=== PATIENT | female | born 1940 | race Caucasian/White ===

== ENCOUNTER 2016-10-27 17:23 | Emergency (ER) | payer MEDICARE ==
[2016-10-27 17:52] VITALS: BP 126/75
[2016-10-27] MEDS ORDERED: Acetaminophen TAB* 325 MG PO ONE (18:10)
--- NOTE | 2016-10-27 18:49 | RAD ---
Indication: Head injury with fall and headaches. CT of the brain was performed without IV contrast. Ventricular structures are midline. No midline shift is noted. The extra-axial spaces are slightly prominent consistent with age-appropriate atrophy. Periventricular lucency is noted consistent with chronic ischemic White matter change. There is no evidence of intracranial mass or hemorrhage noted. Mastoid air cells are grossly unremarkable. Paranasal sinuses are grossly unremarkable. IMPRESSION: CHRONIC ISCHEMIC WHITE MATTER CHANGE HOWEVER NO INTRACRANIAL MASS OR HEMORRHAGE IS NOTED.
--- NOTE | 2016-10-27 19:13 | RAD ---
Indication: Left elbow injury. 5 views of left elbow demonstrates a fracture through the capitellum which appears to be impacted. There is a large joint effusion noted. IMPRESSION: Comminuted impacted fracture through the capitellum. Joint effusion is noted.
--- NOTE | 2016-10-27 19:14 | RAD ---
Indication: Left arm pain. 2 views of the left humerus demonstrates likely impacted fracture of the capitellum. Please refer to elbow report for further description. The shaft of the humerus is otherwise unremarkable. IMPRESSION: Likely impacted fracture of the capitellum. The remainder of the humerus is unremarkable.
--- NOTE | 2016-10-27 19:14 | RAD ---
Indication: Fall, left arm pain. 2 views of left forearm again identifies an impacted fracture of the capitellum of the humerus. The radius and ulna demonstrates no fracture. IMPRESSION: Impacted fracture capitellum. Radius and ulna are unremarkable.
--- NOTE | 2016-10-27 20:02 | ED ---
Upper Extremity Pain - HPI Summary HPI Summary: 76F presents with fall onto left elbow. She slipped on the sidewalk and fell backwards onto her left elbow and head. She eddie any LOC, nausea, or vomiting. She has pain in the back of her head. She is not on any blood thinners. She admits to swelling of her left elbow and loss of ROM due to pain. She states that she has regional pain syndrome of her right shoulder. She states due to this she is unable to use her right arm. She was right handed but now does everything with her left arm. She takes opana and fentayl for pain. - History of Current Complaint Chief Complaint: EDExtremityUpper Stated Complaint: FALL LEFT ARM PAIN Time Seen by Provider: 10/27/16 18:03 - Allergies/Home Medications Allergies/Adverse Reactions: Allergies Allergy/AdvReac Type Severity Reaction Status Date / Time Amitriptyline Allergy Altered Verified 10/14/15 10:10 Mental Status Levofloxacin [From Levaquin] Allergy See Comment Verified 10/14/15 10:10 Pneumococcal Vaccine Allergy REDNESS, Verified 10/14/15 10:10 SWELLING AND PAIN AT INJ SITE Naproxen AdvReac Mild Nausea And Verified 10/14/15 10:10 Vomiting HONEY BEES Allergy Unknown Uncoded 10/14/15 10:10 Reaction Details Pizcumo vac AdvReac Intermediate Swelling Uncoded 10/14/15 10:10 PMH/Surg Hx/FS Hx/Imm Hx Endocrine/Hematology History: Reports: Hx Thyroid Disease - HYPO- ON MEDICATION FOR Denies: Hx Diabetes, Hx Systemic Lupus Erythematosus Cardiovascular History: Reports: Hx Hypertension - on medication Denies: Hx Congestive Heart Failure Respiratory History: Reports: Hx Sleep Apnea GI History: Reports: Other GI Disorders - PROBLEMS WITH CONSTIPATION History: Denies: Hx Dialysis, Hx Renal Disease Musculoskeletal History: Reports: Hx Arthritis, Hx Back Problems, Hx Fibromyalgia, Other Musculoskeletal History - polymyalgia, CRPS of right arm Denies: Hx Rheumatoid Arthritis Sensory History: Reports: Hx Contacts or Glasses - GLASSES FOR DISTANCE Denies: Hx Hearing Aid Opthamlomology History: Reports: Hx Contacts or Glasses - GLASSES FOR DISTANCE Neurological History: Reports: Hx Migraine, Hx Nerve Disease - Reflex sympathetic Dystrophy right arm Psychiatric History: Reports: Hx Anxiety - AT TIMES, Hx Depression - ON MEDICATION FOR - Cancer History Hx Chemotherapy: No Hx Radiation Therapy: No - Surgical History Surgery Procedure, Year, and Place: 1977 tubal; 11/01 ck Calcium bld up in Lt Breast/benign; 07/13 Elbow (Tennis); 09/05 ElbowRt & pinched nerve in forearm; 05/14 Trial test for spinal cord stimulator; 06/21 Permanent spinal cord stimulator; 06/26 APPY; 01/[address] Rodriguez; 04/18/ Stimulator replaced by Dr Calvo; 05/[address] Calvo; 08/27 stimulator reimplanted Hx Anesthesia Reactions: Yes - BLOOD PRESSURE WENT UP AFTER HAVING DORSAL COLUMN STIMULATOR Infectious Disease History: No Infectious Disease History: Denies: Traveled Outside the [place] in Last 30 Days - Social History Alcohol Use: None Substance Use Type: Reports: None Substance Use Comment - Amount & Last Used: fentanyl patch, opana ER Smoking Status (MU): Never Smoked Tobacco Have You Smoked in the Last Year: No Review of Systems Negative: Fever Negative: Cough Positive: Edema - left elbow, Other - left elbow pain Positive: Headache All Other Systems Reviewed And Are Negative: Yes Physical Exam Triage Information Reviewed: Yes Vital Signs On Initial Exam: Initial Vitals Temp Pulse Resp BP Pulse Ox 98.8 F 96 18 126/75 96 10/27/16 17:51 10/27/16 17:51 10/27/16 17:51 10/27/16 17:51 10/27/16 17:51 Vital Signs Reviewed: Yes Appearance: Positive: Well-Appearing Skin: Positive: Warm, Dry Head/Face: Positive: Normal Head/Face Inspection Eyes: Positive: Normal, Conjunctiva Clear ENT: Positive: Normal ENT inspection, Pharynx normal, TMs normal Respiratory/Lung Sounds: Positive: Clear to Auscultation, Breath Sounds Present Cardiovascular: Positive: Normal, RRR Musculoskeletal: Positive: Strength/ROM Intact - wrist and fingers lef, Limited @ - left elbow due to pain, Edema Left - mild edema left elbow, Other - good pulses, capillary refill <2 secs, Neurological: Positive: Sensory/Motor Intact, Alert, Oriented to Person Place, Time, CN Intact II-III - Pearce Coma Scale Best Eye Response: 4 - Spontaneous Best Motor Response: 6 - Obeys Commands Best Verbal Response: 5 - Oriented Procedures - Splinting Location: left arm Hand-Made Type: fiberglass Splint: posterior long arm Pre-Proc Neuro Vasc Exam: normal Post-Proc Neuro Vasc Exam: normal Diagnostics - Vital Signs Vital Signs Temp Pulse Resp BP Pulse Ox 10/27/16 17:52 98.8 F 96 18 126/75 96 10/27/16 17:51 98.8 F 96 18 126/75 96 - Laboratory Lab Statement: Any lab studies that have been ordered have been reviewed, and results considered in the medical decision making process. - Radiology elbow, humerus, forearm Xray Interpretation: Positive (See Comments) Radiology Interpretation Completed By: Radiologist - CT head CT Interpretation: No Acute Changes - IMPRESSION: CHRONIC ISCHEMIC WHITE MATTER CHANGE HOWEVER NO INTRACRANIAL MASS OR HEMORRHAGE IS NOTED. CT Interpretation Completed By: Radiologist Course/Dx - Course Course Of Treatment: 76F presents with left elbow pain s/p falling backwards onto elbow. denies any numbness or tingling. limited ROM of elbow with mild edema. hit head denies any LOC or being on blood thinners. normal neuro exam. CT brain no acute changes. xray elbow shows comminuted impacted fracture through the capitellum. spoke with dr kline and said to place a lot of padding and place in long posterior arm splint with sling and follow up with ortho tomorrow. will take normal pain medication. patient understands and agrees with plan - Diagnoses Differential Diagnosis/HQI/PQRI: Positive: Fracture (Closed), Strain, Sprain Provider Diagnoses: Closed fracture of capitellum of left humerus - Physician Notifications Discussed Care Of Patient With: dr kline Time Discussed With Above Provider: 22:00 - place in posterior long arm splint with lots of padding, follow up with ortho tomorrow Discharge - Discharge Plan Condition: Good Disposition: HOME Patient Education Materials: Elbow Fracture (ED) Referrals: Lew Teresa MD [Primary Care Provider] - Rita Kline MD [Medical Doctor] - Additional Instructions: Call Dr Kline office tomorrow morning for appointment tomorrow Keep splint on area and keep dry Take Tylenol every 6 hours as needed for pain Apply ice Return to ED if develop any numbness, tingling, or any new or worsening symptoms
== END 2016-10-27 21:39 | disposition home or self-care (01) ==
LOC: ED 17:23
DX: S42.302A Unspecified fracture of shaft of humerus, left arm, initial encounter for closed fracture (principal); W01.0XXA Fall on same level from slipping, tripping and stumbling without subsequent striking against object, initial encounter; Y93.9 Activity, unspecified; Y92.9 Unspecified place or not applicable; Y99.9 Unspecified external cause status
CPT/HCPCS: 70450; 99283; A9270-GY

== ENCOUNTER 2019-08-22 11:35 | Inpatient (IN) | payer MEDICARE ==
--- NOTE | 2019-08-11 11:33 | HP ---
AMENDED REPORT NOW INCLUDES DESIGNATED COSIGNER - ESIGNED BEFORE ADJUSTMENTS HISTORY AND PHYSICAL: DATE OF ADMISSION/SURGERY: 08/22/19 DATE OF OFFICE VISIT: 08/11/19 SURGEON: Rita Kline MD.* (DICTATED BY ANIL DURAN) PROCEDURE: Right total knee arthroplasty. CHIEF COMPLAINT: Right knee pain. HISTORY OF PRESENT ILLNESS: Ms. Harrell is a 79-year-old female with end-stage osteoarthritis of the right knee. She has failed conservative treatment and elected to proceed with a right total knee arthroplasty. PAST MEDICAL HISTORY: Hypertension, high cholesterol, complex regional pain syndrome, sleep apnea, depression, anxiety, hypothyroidism. PAST SURGICAL HISTORY: Tubal ligation, right elbow surgery x2, spinal cord stimulator placement and removal multiple times, left breast surgery, and appendectomy. CURRENT MEDICATIONS: 1. Atorvastatin calcium 10 mg daily. 2. Tizanidine 4 mg daily. 3. Oxycodone 20 mg every 6 hours. 4. Duloxetine 30 mg twice a day. 5. Catapres 0.3 mg per 24 hours. 6. Cymbalta 30 mg daily. 7. Levothyroxine 75 mcg a day. 8. Modafinil 200 mg daily. 9. Acetaminophen as needed. 10. Compazine. 11. Pregabalin 50 mg twice a day. 12. Atenolol 25 mg daily. 13. Aripiprazole 2 mg a day. ALLERGIES: NAPROXEN, LEVOFLOXACIN, HONEY BEES, PNEUMONIA INJECTION, AMITRIPTYLINE. FAMILY HISTORY: Cancer, coronary artery disease, and stroke. SOCIAL HISTORY: She is a 79-year-old female. She lives alone. She does not smoke or use drugs. REVIEW OF SYSTEMS: A complete 14-point review of systems was reviewed with the patient. It was positive for hypothyroidism. She denies a history of a DVT, PE , hepatitis, HIV, or anesthesia problems. PHYSICAL EXAMINATION GENERAL: She is well developed, well nourished, in no acute distress. VITAL SIGNS: She stands 61 inches tall, weighs 159 pounds. Her blood pressure is 134/78 and her heart rate is 64. HEENT: Normocephalic, atraumatic. NECK: Supple. No palpable lymph nodes. PULMONARY: The lungs are clear to auscultation bilaterally. CARDIO: Regular rate and rhythm. Strong S1, S2. ABDOMEN: Soft, nontender, nondistended. MUSCULOSKELETAL: Right lower extremity: The skin is intact. There are no open wounds or abrasions. There is moderate effusion of the right knee joint. Some tenderness along the medial and lateral joint lines. Range of motion is 10 to 120 degrees of flexion with patellofemoral crepitus. There is a 15- degree valgus deformity of the knee. She is able to dorsiflex and plantarflex with a 2+ dorsalis pedis pulse and intact sensation. NEUROLOGIC: She is alert and oriented x3. ASSESSMENT AND PLAN: Ms. Harrell is a 79-year-old female with end-stage osteoarthritis of the right knee. She has failed conservative treatment and elected to proceed with a right total knee arthroplasty. The surgery is scheduled for 08/22/[address] Kline. The risks and benefits of the surgery were discussed with the patient at today's visit and all of her questions were answered. She will follow with Dr. Kline 2 weeks after the surgery. ANIL DURAN [id number]/[facility] #: [id number] MTDReanna
[~2019-08-22 11:35] MED LIST: Buffered Lidocaine 1% SYRIN* 1 ML/SYRINGE INTRADERM ONE; Lactated Ringers 1000 ML Bag* 1,000 ML IV SCH; Tranexamic Acid 1,000 MG in NS 0.9% 50 ML* (outpatient use) IV SCH
--- OUTSIDE RECORDS SUMMARY | 2019-08-22 11:38 | XMS REPORT | Continuity of Care Document ---
:1940 External Reference #:[id number] Author Name Rita Kline M.D. (transmitted by agent of provider Lindsey Tong) Address [address] [place] [id number] Problems Active Problems Provider Date Central sleep apnea syndrome Jacquie Vallecillo DNP, RN, VASCULAR TECHNOLOGIST- Onset: 2014 Note: obstructive, central and mixed Localized, primary osteoarthritis Rita Kline M.D. Onset: 06/03/2015 Trochanteric bursitis Rita Kline M.D. Onset: 04/05/2019 Social History Type Date Description Comments Sex Unknown Tobacco Use Start: Unknown Never Smoked Cigarettes Smoking Status Reviewed: 07/07/19 Never Smoked Cigarettes ETOH Use Denies alcohol use Tobacco Use Start: Unknown Patient has never smoked Recreational Drug Use Never Used Drugs Exercise Type/Frequency Walks 3 times a week Exercise Type/Frequency Exercises regularly Allergies, Adverse Reactions, Alerts Active Allergies Reaction Severity Comments Date Naproxen 09/19/2014 Levofloxacin 06/03/2015 Honey Bees 09/13/2015 Pneumonia Injection 09/02/2016 Amitriptyline Nightmares 09/15/2017 Medications Active Medications SIG Qnty Indications Ordering Provider Date Atorvastatin Calcium 1 by mouth every Unknown 09/01/2016 10mg day Tablets Tizanidine HCL 1 tab 1 time a Unknown 09/18/2014 4mg Capsules day [id number] Unknown 09/18/2014 0.3mg/24HR Patches Weekly Cymbalta 1 by mouth 1 time Unknown 09/18/[address] Part a day Levothyroxine Sodium 1 by mouth every Unknown 09/18/2014 88mcg day Tablets Modafinil 1 by mouth every Unknown 09/18/2014 200mg Tablets day Acetaminophen as needed for Unknown 09/18/2014 500mg pain Capsules Compazine Unknown Pregabalin take one capsule Unknown 50mg Capsules by mouth twice daily ongoing Morphine Sulfate ER Unknown 30mg Caps ER 24HR Atenolol 1 by mouth every Unknown 25mg Tablets day Aripiprazole 1 by mouth every Unknown 2mg Tablets day Medications Administered in Office Medication SIG Qnty Indications Ordering Provider Date Depomedrol 40MG Rita Kline M.D. 04/05/2019 Injection Depomedrol 40MG Rita Kline M.D. 04/14/2017 Injection Depomedrol 40MG Rita Kline M.D. 10/16/2016 Injection Depomedrol 40MG Rita Kline M.D. 12/25/2015 Injection Depomedrol 40MG Rita Kline M.D. 06/03/2015 Injection Immunizations CPT Code Status Date Vaccine Lot # [id number] Given 09/19/2014 Fluvirin Im 3Yrs And Older Vital Signs Date Vital Result Comment 07/07/2019 9:46am Height 61 inches 5'1" Weight 166.00 lb Heart Rate 72 /min BP Systolic 130 mmHg BP Diastolic 84 mmHg Respiratory Rate 12 /min Body Temperature 97.5 F Pain Level 9 BMI (Body Mass Index) 31.4 kg/m2 04/05/2019 10:10am Height 61 inches 5'1" Weight 165.00 lb BP Systolic 140 mmHg BP Diastolic 70 mmHg Respiratory Rate 14 /min Body Temperature 97.4 F Pain Level 8 BMI (Body Mass Index) 31.2 kg/m2 Results Description No Information Available Procedures Date Code Description Status 07/07/201961126 Inject/Drain Joint/Bursa Major W/O US Completed 07/07/2019 40334 Inject/Drain Joint/Bursa Major W/O US Completed 04/05/2019 Inject/Drain Joint/Bursa Major W/O US Completed Medical Devices Description No Information Available Encounters Type Date Location Provider Dx Diagnosis Office Visit 04/05/2019 [facility] Rita Kline M70.61 [place], right hip M16.11 Unilateral primary osteoarthritis, right hip M17.11 Unilateral primary osteoarthritis, right knee M25.561 Pain in right knee M25.461 Effusion, right knee M70.62 Trochanteric bursitis, left hip Assessments Date Code Description Provider 07/07/2019 M70.61 Trochanteric bursitis, right hip Rita Kline M.D. 07/07/2019 M16.11 Unilateral primary osteoarthritis, right hip Rita Kline M.D. 07/07/2019 M17.11 Unilateral primary osteoarthritis, right knee Rita Kline M.D. 07/07/2019 M25.561 Pain in right knee Rita Kline M.D. 07/07/2019 M25.461 Effusion, right knee Rita Kline M.D. 04/05/2019 M70.61 Trochanteric bursitis, right hip Rita Kline M.D. 04/05/2019 M16.11 Unilateral primary osteoarthritis, right hip Rita Kline M.D. 04/05/2019 M17.11 Unilateral primary osteoarthritis, right knee Rita Kline M.D. 04/05/2019 M25.561 Pain in right knee Rita Kline M.D. 04/05/2019 M25.461 Effusion, right knee Rita Kline M.D. 04/05/2019 M70.62 Trochanteric bursitis, left hip Rita Kline M.D. Plan of Treatment 07/07/2019 - Rita Kline M.D.M70.61 Trochanteric bursitis, right hipFollow up: Follow up: As [id number] Unilateral primary osteoarthritis, right hipM17.11 Unilateral primary osteoarthritis, right kneeFollow up:Call Dr. Kline's Finish Repairer, Tricia, to schedule surgery.M25.561 Pain in right kneeM25.461 Effusion, right knee Functional Status Description No Information Available Mental Status Description No Information Available Referrals Description No Information Available
--- OUTSIDE RECORDS SUMMARY | 2019-08-22 11:38 | XMS REPORT | Continuity of Care Document ---
:1940 External Reference #:[id number] Author Name ANIL Freitas (transmitted by agent of provider Sofiya Martinez) Address [address] [place] [address] Problems Active Problems Provider Date Central sleep apnea syndrome Jacquie Vallecillo DNP, RN, INVAS TECH- Onset: 2014 Note: obstructive, central and mixed Localized, primary osteoarthritis Rita Kline M.D. Onset: 06/03/2015 Trochanteric bursitis Rita Kline M.D. Onset: 04/05/2019 Social History Type Date Description Comments Sex Unknown Tobacco Use Start: Unknown Never Smoked Cigarettes Smoking Status Reviewed: 08/11/19 Never Smoked Cigarettes ETOH Use Denies alcohol [...] time a Unknown 09/18/2014 4mg Capsules day [id number] Unknown 09/18/2014 0.3mg/24HR Patches Weekly Cymbalta 1 by mouth 1 time Unknown 09/18/[address] Part a day Levothyroxine Sodium 1 by mouth every Unknown 09/18/2014 88mcg day Tablets Modafinil 1 by mouth every Unknown 09/18/2014 200mg Tablets day Acetaminophen as needed for Unknown 09/18/2014 500mg pain Capsules Compazine Unknown Atenolol 1 by mouth every Unknown 25mg Tablets day Aripiprazole 1 by mouth every Unknown 2mg Tablets day Oxymorphone HCL ER Take 1 To 2 Unknown 10mg Tablets By Mouth Tablets ER 12HR Three Times A Day as Needed For Severe Pain - Maximum Daily Dose Of 5 Tablets Per Day Medications Administered in Office Medication SIG Qnty Indications Ordering Provider Date Depomedrol 40MG Rita Kline M.D. 07/07/2019 Injection Depomedrol 40MG Rita Kline M.D. 07/07/2019 Injection Depomedrol 40MG Rita Kline M.D. 04/05/2019 Injection Depomedrol 40MG Rita Kline M.D. 04/14/2017 Injection Depericrol 40MG Rita Kline M.D. 10/16/2016 Injection Depomedrol 40MG Rita Kline M.D. 12/25/2015 Injection Depomedrol 40MG Rita Kline M.D. 06/03/2015 Injection Immunizations CPT Code Status Date Vaccine Lot # [id number] Given 09/19/2014 Fluvirin Im 3Yrs And Older Vital Signs Date Vital Result Comment 08/11/2019 10:00am Height 61 inches 5'1" Weight 159.00 lb Heart Rate 64 /min BP Systolic 134 mmHg BP Diastolic 78 mmHg Body Temperature 95.2 F Pain Level 6 BMI (Body Mass Index) 30.0 kg/m2 07/24/2019 11:27am Height 61 inches 5'1" Weight 162.00 lb Heart Rate 45 /min BP Systolic 130 mmHg BP Diastolic 78 mmHg O2 % BldC Oximetry 92 % BMI (Body Mass Index) 30.6 kg/m2 Results Description No Information Available Procedures Date Code Description Status 07/07/2019 Inject/Drain Joint/Bursa Major W/O US Completed 07/07/2019 Injection Single Tendon Origin/Insertion Completed 04/05/2019 Inject/Drain Joint/Bursa Major W/O US Completed Medical Devices Description No Information Available Encounters Type Date Location Provider Dx Diagnosis Office Visit 07/24/2019 [facility]quie Vallecillo, G47.37 Central sleep apnea 11:30a [facility] RN, INVAS TECH-BC in conditions Manager Transit classified elsewhere Office Visit 07/07/2019 [facility] Rita Klien, Purvi70.61 Trochanteric 9:30a at [place] bursitis, right hip M16.11 Unilateral primary osteoarthritis, right hip M17.11 Unilateral primary osteoarthritis, right knee M25.561 Pain in right knee M25.461 Effusion, right knee Office Visit 04/05/2019 10:00a [facility] Rita Loja70.61 Trochanteric at [place] Kline M.D. bursitis, right hip M16.11 Unilateral primary osteoarthritis, right hip M17.11 Unilateral primary osteoarthritis, right knee M25.561 Pain in right knee M25.461 Effusion, right knee M70.62 Trochanteric bursitis, left hip Assessments Date Code Description Provider 08/11/2019 M25.561 Pain in right knee ANIL Freitas 08/11/2019 M25.461 Effusion, right knee ANIL Freitas 08/11/2019 M17.11 Unilateral primary osteoarthritis, ANIL Freitas right knee 07/24/2019 G47.37 Central sleep apnea in conditions Jacquie Vallecillo DNP, ELIZABETH , classified elsewhere INVAS TECH-BC 07/13/2019 M17.11 Unilateral primary osteoarthritis, Rita Kline M.D. right knee 07/13/2019 M25.561 Pain in right knee Rita Kline M.D. 07/13/2019 M25.461 Effusion, right knee Rita Kline M.D. 07/07/2019 M70.61 Trochanteric bursitis, right hip Rita Kline M.D. 07/07/2019 M16.11 Unilateral primary osteoarthritis, Rita Kline M.D. right hip 07/07/2019 M17.11 Unilateral primary osteoarthritis, Rita Kline M.D. right knee 07/07/2019 M25.561 Pain in right knee Rita Kline M.D. 07/07/2019 M25.461 Effusion, right knee Rita Kline M.D. 04/05/2019 M70.61 Trochanteric bursitis, right hip Rita Kline M.D. 04/05/2019 M16.11 Unilateral primary osteoarthritis, Rita Kline M.D. right hip 04/05/2019 M17.11 Unilateral primary osteoarthritis, Rita Kline M.D. right knee 04/05/2019 M25.561 Pain in right knee Rita Kline M.D. 04/05/2019 M25.461 Effusion, right knee Rita Kline M.D. 04/05/2019 M70.62 Trochanteric bursitis, left hip Rita Kline M.D. Plan of Treatment Future Appointment(s):09/05/2019 10:00 am - ANIL Freitas at [facility] at Iidnto2708/22/2019 2:30 pm - Gerard Aguilar PA-C at [facility] at Cmlooh7608/22/2019 2:30 pm - ANIL Freitas at [facility] at Yszutp2307/23/2020 11:00 am - Jacquie Vallecillo DNP, RN, INVAS TECH-BC at [facility]08/22/2019 2:30 pm - Rita Kline M.D. at [facility] at Evtiyj1008/11/2019 - Henna Hurt, PAM25.561 Pain in right kneeFollow up:Follow up: 2 weeks after peafyqtJ64.461 Effusion, right kneeM17.11 Unilateral primary osteoarthritis, right knee Functional Status Description No Information Available Mental Status Description No Information Available Referrals Description No Information Available
--- OUTSIDE RECORDS SUMMARY | 2019-08-22 11:38 | XMS REPORT | Continuity of Care Document ---
:1940 External Reference #:[id number] Author Name Jacquie Vallecillo DNP, RN, CLAY ARTIST-BC (transmitted by agent of provider Ewa Juarez) Address [address] [facility], [address] [place] [id number] Problems Active Problems Provider Date Central sleep apnea syndrome Jacquie Vallecillo DNP, RN, CLAY ARTIST-BC Onset: 2014 Note: obstructive, central and mixed Localized, primary osteoarthritis Rita Kline M.D. Onset: 06/03/2015 Trochanteric bursitis Rita Kline M.D. Onset: 04/05/2019 Social History Type Date Description Comments Sex Unknown Tobacco Use Start: Unknown Never Smoked Cigarettes Smoking Status Reviewed: 07/24/19 Never Smoked Cigarettes ETOH Use Denies alcohol [...] time a Unknown 09/18/2014 4mg Capsules day [id number] Unknown 09/18/2014 0.3mg/24HR Patches Weekly Cymbalta 1 [...] Depomedrol 40MG Rita Kline M.D. 04/05/2019 Injection Depericrol 40MG Rita Kline M.D. 04/14/2017 Injection Samantharol 40MG Rita Kline M.D. 10/16/2016 Injection Depomedrol 40MG Rita Kline M.D. 12/25/2015 Injection Depomedrol SERENITY Kline M.D. 06/03/2015 Injection Immunizations CPT Code Status Date Vaccine Lot # [id number] Given 09/19/2014 Fluvirin Im 3Yrs And Older Vital Signs Date Vital Result Comment 07/24/2019 11:27am Height 61 inches 5'1" Weight 162.00 lb Heart Rate 45 /min BP Systolic 130 mmHg BP Diastolic 78 mmHg O2 % BldC Oximetry 92 % BMI (Body Mass Index) 30.6 kg/m2 07/07/2019 9:46am Height 61 inches 5'1" Weight 166.00 lb Heart Rate 72 /min BP Systolic 130 mmHg BP Diastolic 84 mmHg Respiratory Rate 12 /min Body Temperature 97.5 F Pain Level 9 BMI (Body Mass Index) 31.4 kg/m2 Results Description No Information Available Procedures Date Code Description Status 07/07/2019 Inject/Drain Joint/Bursa Major W/O US Completed 07/07/2019 Injection Single Tendon Origin/Insertion Completed 04/05/2019 Inject/Drain Joint/Bursa Major W/O US Completed Medical Devices Description No Information Available Encounters Type Date Location Provider Dx Diagnosis Office Visit 04/05/2019 [facility] Rita Kline, M70.61 Trochanteric 10:00a at [facility] bursitis, right hip M16.11 Unilateral primary osteoarthritis, right hip M17.11 Unilateral primary osteoarthritis, right knee M25.561 Pain in right knee M25.461 Effusion, right knee M70.62 Trochanteric bursitis, left hip Assessments Date Code Description Provider 07/24/2019 G47.37 Central sleep apnea in conditions Jacquie Vallecillo DNP, RN , classified elsewhere CLAY ARTIST-BC 07/13/2019 M17.11 Unilateral primary osteoarthritis, Rita Kline [...] Rita Kline M.D. Plan of Treatment Future Appointment(s):07/23/2020 11:00 am - Jacquie Vallecillo DNP, RN, CLAY ARTIST-BC at [facility] [place] [address]/2020 10:00 am - ANIL Freitas at [facility] at Mqeudc0308/22/2019 2:30 pm - Rita Kline M.D. at [facility] at Dfdunw1207/24/2019 - Jacquie Vallecillo DNP, RN, CLAY ARTIST-BCG47.37 Central sleep apnea in conditions classified elsewhereComments:Complex apnea with obstructive, central and mixed events; severe. on ASV. On ASV AHI 0.4/ hourFollow up:1 yearRecommendations:Benefitting and compliant with ASV. Continue at current settings Clean mask daily and humidifier, tubing and filter weekly. If you have any sleepiness while driving you MUST avoid operating a vehicleor machinery. If you have difficulty with your equipment, or need to replace your mask or hoses, please contact your homecare agency. A weight change of 20 pounds or more may have an effect on your equipment; if you are experiencing problems please call for an appointment. If you have any further questions, please call the [facility] at [phone] Functional Status Description No Information Available Mental Status Description No Information Available Referrals Description No Information Available
--- OUTSIDE RECORDS SUMMARY | 2019-08-22 11:38 | XMS REPORT | Continuity of Care Document ---
:1940 External Reference #:[id number] Author Name ANIL Freitas (transmitted by agent of provider Denia Zuniga) Address [address] , [place] [address] Problems Active Problems Provider Date Central sleep apnea syndrome Jacquie Vallecillo DNP, RN, PRODUCT SPECIALIST- Onset: 2014 Note: obstructive, central and mixed [...] Medications SIG Qnty Indications Ordering Provider Date Bactrim DS take 1 by mouth 6tabs Rita Kline, 08/14/2019 800-160mg twice a day for M.D. Tablets 3 days Atorvastatin Calcium 1 by mouth every Unknown 09/01/2016 10mg day Tablets Tizanidine HCL 1 tab 1 time a Unknown 09/18/2014 4mg Capsules day [id number]-[id number] Unknown 09/18/2014 0.3mg/24HR Patches Weekly Cymbalta 1 by mouth 1 Unknown 09/18/[address] multimedia authoring specialist a day Levothyroxine Sodium 1 by mouth [...] BMI (Body Mass Index) 30.6 kg/m2 Results Test Acquired Date Facility Test Result H/L Range Note CBC Auto 08/11/[address] [facility] White Blood 5.9 10^3/uL Normal 3.5-10.[address] [place] [address] [phone] Red Blood Count 3.90 10^6/uL Normal 3.70-4.87 Hemoglobin 12.7 g/dL Normal 12.0-16.0 Hematocrit 37 % Normal 35-47 Mean Corpuscular Volume 94 fL Normal 80-97 Mean Corpuscular Hemoglobin 33 pg High 27-31 Mean Corpuscular HGB Conc 35 g/dL Normal 31-36 Red Cell Distribution Width 15 % Normal 10-15 Platelet Count 208 10^3/uL Normal 150-450 Mean Platelet Volume 7.4 fL Normal 7.4-10.4 Abs Neutrophils 3.4 10^3/uL Normal 1.5-7.7 Abs Lymphocytes 1.7 10^3/uL Normal 1.0-4.8 Abs Monocytes 0.5 10^3/uL Normal 0-0.8 Abs Eosinophils 0.1 10^3/uL Normal 0-0.6 Abs Basophils 0.0 10^3/uL Normal 0-0.2 Abs Nucleated RBC 0.0 10^3/uL Granulocyte % 58.5 % Lymphocyte % 29.5 % Monocyte % 9.3 % Eosinophil % 2.4 % Basophil % 0.3 % Nucleated Red Blood Cells % 0.0 Urinalysis Profile 08/11/[address] [facility] Urine Color Yellow [address] [place] [address] [phone] Urine Appearance Cloudy Urine Specific [place] 1.019 Normal 1.010-1.030 Urine pH 5.0 Normal 5-9 Urine Urobilinogen Negative Negative Urine Ketones Negative Negative Urine Protein Negative Negative Urine Leukocytes 1+ Abnormal Negative Urine Blood Negative Negative Urine Nitrite Negative Negative Urine Bilirubin Negative Negative Urine Glucose Negative Negative Urine White Blood Cell 1+(6-10/hpf) Abnormal Absent Urine Red Blood Cell Absent Absent Urine Bacteria Absent Absent Urine Squamous Epithelial Cell Present Abnormal Absent Comp Metabolic 08/11/[address] [facility] Sodium 142 mmol/L Normal 135-145 Panel [address] [place] [address] [phone] Potassium 4.2 mmol/L Normal 3.5-5.0 Chloride 106 mmol/L Normal 101-111 Co2 Carbon Dioxide 31 mmol/L Normal 22-32 Anion Gap 5 mmol/L Normal 2-11 Glucose 91 mg/dL Normal 70-100 Blood Urea Nitrogen 22 mg/dL Normal 6-24 Creatinine 1.73 mg/dL High 0.51-0.95 BUN/Creatinine Ratio 12.7 Normal 8-20 Calcium 9.5 mg/dL Normal 8.6-10.3 Total Protein 6.1 g/dL Low 6.4-8.9 Albumin 4.1 g/dL Normal 3.2-5.2 Globulin 2.0 g/dL Normal 2-4 Albumin/Globulin Ratio 2.1 Normal 1-3 Total Bilirubin 0.50 mg/dL Normal 0.2-1.0 Alkaline Phosphatase 117 U/L High 34-104 Alt 14 U/L Normal 7-52 Ast 17 U/L Normal 13-39 Egfr Non- 28.6 >60 Egfr 34.6 >60 1 Inr/Protime 08/11/[address] [facility] Inr 0.99 Normal 0.82-1.[address] [place] [address] [phone] Laboratory test 08/11/[address] [facility] Partial 36.4 Normal 26.0 -38.[address] [address] Time PTT [phone] Type & Screen 08/11/[address] [facility] Patient B Positive [address] Blood Type [place], [place] [id number] [phone] Antibody Screen NEGATIVE Urine Culture And 08/11/[address] [facility] Urine Culture SEE RESULT [address] [place], [place] [address] [phone] 1 Because ethnic data is not always readily available, this report includes an eGFR for both -Americans and non- Americans. The National Kidney Disease Education Program (NKDEP) does not endorse the use of the MDRD equation for patients that are not between the ages of 18 and 70, are , have extremes of body size, muscle mass, or nutritional status, or are non- or non-. According to the National Kidney Foundation, irrespective of diagnosis, the stage of the disease is based on the level of kidney function: Stage Description GFR(mL/min/1.73 m(2)) 1 Kidney damage with normal or decreased GFR 90 2 Kidney damage with mild decrease in GFR 60-89 3 Moderate decrease in GFR 30-59 4 Severe decrease in GFR 15-29 5 Kidney failure <15 (or dialysis) 2 Standard intensity warfarin therapeutic range: 2.0-3.0 High intensity warfarin therapeutic range: 2.5-3.5 3 SEE RESULT BELOW Name: MICHELLEMILLICENT : [address]: Rita Kline MD Acct: [id number] Unit: [id number] AGE: 79 Location: [facility] Re08/11/19 SEX: F Status: REG REF SPEC: [id number] ELBA: 08/11/19-[address] [facility] [address]: Rita Kline MD REQ: [id number] RECD: 08/11/19141 STATUS: [facility] DR: Lew Teresa MD _ SOURCE: URINE SPDESC: ORDERED: Urine Culture QUERIES: Urine Source: Clean Catch Procedure Result Reported Site Urine Culture Final 08/13/19- 0846 ML Organism 1 ESCHERICHIA COLI [place] Count >100,000 (Many) CFU/ML 1. ESCHERICHIA COLI M.I.C. RX --------- ------ Ampicillin <=2 S Cefazolin <=4 S Cefepime <=1 S Ceftriaxone <=1 S Ciprofloxacin <=0.25 S Gentamicin <=1 S Levofloxacin <=0.12 S Meropenem <=0.25 S Nitrofurantoin <=16 S Tetracycline <=1 S Pipercillin/Tazobactam <=4 S Trimethoprim/Sulfamethoxazole <=20 S Amoxicillin/Clavulanic Acid <=2 S Aztreonam <=1 S Contact the Microbiology Department for any additional antibiotic reporting. * [facility] - Main Lab . END OF REPORT DEPARTMENT OF PATHOLOGY, [address] [place] [address] Gómez Lau M.D. Director [facility] # [id number] Procedures Date Code Description Status 07/07/2019 Inject/Drain Joint/Bursa Major W/O US Completed 07/07/2019 Injection Single Tendon Origin/Insertion Completed 04/05/2019 Inject/Drain Joint/Bursa Major W/O US Completed Medical Devices Description No Information Available Encounters Type Date Location Provider Dx Diagnosis Office Visit 07/24/2019 [facility] Vallecillo, G47.37 Central sleep apnea 11:[facility]a [facility] DNP, RN, PRODUCT SPECIALIST-BC in conditions [place] classified elsewhere Office Visit 07/07/2019 [facility] Purvi Billings70.61 Trochanteric 9:30a at [facility] bursitis, right hip M16.11 Unilateral primary osteoarthritis, right hip M17.11 Unilateral primary osteoarthritis, right knee M25.561 Pain in right knee M25.461 Effusion, right knee Office Visit 04/05/2019 10:00a [facility] Rita M70.61 Trochanteric at [facility] Kline M.D. bursitis, right [...] Jacquie Vallecillo DNP, RN , classified elsewhere PRODUCT SPECIALIST-BC 07/13/2019 M17.11 Unilateral primary osteoarthritis, Rita Kline [...] Appointment(s):09/05/2019 10:00 am - ANIL Freitas at [facility] at Joulcp5408/22/2019 2:30 pm - Gerard Aguilar PA-C at [facility] at Stqqwd7308/22/2019 2:30 pm - ANIL Freitas at [facility] at Jvpqhx1607/23/2020 11:00 am - Jacquie Vallecillo DNP, RN, PRODUCT SPECIALIST-BC at [facility]08/22/2019 2:30 pm - Rita Kline M.D. at [facility] at Vxdzyk0308/11/2019 - Henna Hurt, PAM25.561 Pain in right kneeFollow up:Follow up: 2 weeks after nvogdouL18.461 Effusion, right kneeM17.11 Unilateral primary osteoarthritis, right knee Functional Status Description No Information Available Mental Status Description No Information Available Referrals Description No Information Available
[2019-08-22] MEDS ORDERED: ceFAZolin 2 GM PREMIX in ORs 2 GM/50 ML BAG ONE (12:00)
[2019-08-22] MEDS ORDERED: Midazolam* 1 MG/ML 2 ML VIAL (2 MG) ONE ×2 (13:17→16:28)
[2019-08-22] MEDS ORDERED: Lidocaine 1% MPF ** 5 ML VIAL ONE (14:00)
[2019-08-22] MEDS ORDERED: ROPIVACAINE 5 MG/ML 30 ML BTL (0.5%) ONE ×2 (14:00→14:13)
[2019-08-22] MEDS ORDERED: Bupivacaine 0.5% SDV PF* 30ML VIAL ONE (14:34)
[2019-08-22] MEDS ORDERED: fentaNYL* 50 MCG/ML 2 ML VIAL (100 MCG VIAL) ONE ×3 (14:34→17:31)
[2019-08-22] MEDS ORDERED: Propofol* 10 MG/ML 20 ML BTL ONE (14:48)
[2019-08-22] MEDS ORDERED: Phenylephrine 40 MCG/ML SYRINGE ONE ×2 (15:27→16:25)
[2019-08-22] MEDS ORDERED: EPHEDrine (Pressors)* 50 MG/ML VIAL ONE ×2 (15:51→16:21)
[2019-08-22] MEDS ORDERED: Phenylephrine 10 MG/ML VIAL* 1 ML VIAL ONE (16:31)
[2019-08-22] MEDS ORDERED: Magnesium Hydroxide LIQ* 30 ML UDC PO PRN (17:14)
[2019-08-22] MEDS ORDERED: diPHENhydraMINE IV* 50 MG/ML 1 ml VIAL (BENADRYL) IV PRN (17:14)
[2019-08-22] MEDS ORDERED: oxyCODONE/Acetamin 5/325 MG* TAB PO PRN ×2 (17:14→17:22)
[2019-08-22] MEDS ORDERED: Ondansetron ODT TAB* 4 MG PO PRN (17:14)
[2019-08-22] MEDS ORDERED: Morphine INJ* 2 MG/ML 1 ML SYRINGE (TWO MG - NEW SYRINGE VERSION) IV PRN (17:14)
[2019-08-22] MEDS ORDERED: diPHENhydraMINE PO* 25 MG PO PRN (17:14)
[2019-08-22] MEDS ORDERED: Ondansetron INJ* 2 MG/ML VIAL IV PRN ×2 (17:14→17:22)
[2019-08-22] MEDS ORDERED: oxyCODONE TAB* 5 MG TAB PO PRN (17:19)
[2019-08-22] MEDS ORDERED: Naloxone* 0.4 MG/ML 1 ML VIAL IV PRN (17:22)
[2019-08-22] MEDS: fentaNYL* 50 MCG/ML 2 ML VIAL (100 MCG VIAL) IV PRN ×2 (17:32→17:42)
[2019-08-22] MEDS ORDERED: HYDROmorphone INJ1* 1 MG/ML SYRINGE ONE (17:54)
[2019-08-22] MEDS ORDERED: oxyCODONE/Acetamin 5/325 MG* TAB ONE (17:54)
[2019-08-22] MEDS: HYDROmorphone INJ1* 1 MG/ML SYRINGE IV PRN ×2 (18:03→18:16)
--- NOTE | 2019-08-22 18:08 | PN ---
Progress Note - Progress Note Date of Service: 08/22/19 Note: Pt seen at bedside POD 0. She feels well and pain is controlled. Denies CP, SOB , dizziness, nausea. Thigh soft, df/pf intact, DP2+, PT2+, sensation intact to light touch distally. Her fingers and toes are mottled bilaterally with slow cap refill, reports that this is baseline and she has been told she has poor bloodflow by other providers in the past.
[2019-08-22] MEDS ORDERED: Ondansetron INJ* 2 MG/ML VIAL ONE (18:15)
[2019-08-22] MEDS: Lactated Ringers 1000 ML Bag* 1,000 ML IV SCH (19:11)
[2019-08-22] MEDS: oxyCODONE/Acetamin 5/325 MG* TAB PO PRN ×2 (19:22→23:25)
--- NOTE | 2019-08-22 19:25 | OP ---
Operative Report - Blank - Operative Report Date of Operation: 08/22/19 Note: JARED MARTINEZ 1940 Date of Surgery: 08/22/19 Rita Kline MD Manager Of Creative Services: Nasra MA did help throughout the procedure with preparation of the knee, wound retraction, manipulation of the knee, and wound closure. Anesthesiologist: Dr. Tello Anesthesia Type: Spinal Preoperative Diagnosis: Right severe degenerative osteoarthritis of the knee Postoperative Diagnosis: As above Procedure Performed: Right Total Knee Arthroplasty Tourniquet time: 38 minutes Complications: None Specimen: Bone and cartilage from the right knee joint sent to pathology. Hardware Used: Cemented Malhotra and Nephew total knee hardware was used - For the femur a size 5 narrow right legion posterior stabilized femoral component, for the tibia a size 3 right genie II tibial baseplate, for the insert a size 9mm 3-4 posterior stabilized articular polyethylene insert, and for the patella a size 32 3-peg all poly patella. Brief History/Indication: JARED MARTINEZ was known in clinic and had a history of severe right knee pain and swelling. She failed conservative treatment with anti-inflammatories, pain pills, intra-articular injections and physical therapy. She elected to undergo right total knee arthroplasty due to continued pain and decreased quality of life. Radiographs showed severe end stage osteoarthritis of the knee with bone on bone contact. Informed consent was obtained from the patient. She understood the risks of surgery included but were not limited to: bleeding, infection, damage to nearby structures, intraoperative fracture, nerve palsy, failure of the hardware, early loosening, knee stiffness or loss of motion, anesthesia complications, stroke, heart attack , blood clot and . She wished to proceed. Intra-Operative Findings: Intraoperatively the patient was noted to have severe loss of cartilage in all 3 compartments of the knee. She had severe bone loss and deformity of the patella. She had minimal bone stock to use for the resurfacing. Description of the Procedure: JARED MARTINEZ was identified in the preanesthesia unit. Her right knee was marked as the correct operative side. Informed consent was signed and placed in the chart. The patient was taken to the operating room and placed under anesthesia without complication. A avina catheter was placed. A tourniquet was placed on the right thigh. The right lower extremity was prepped and draped in the usual sterile fashion. Preoperative time-out was made to correctly identify the patient, side and site. Appropriate intraoperative antibiotics were given within one hour of incision. Tourniquet was inflated. A midline incision was made and carried sharply down to the extensor mechanism. A new 10 blade was used to make a standard medial parapatellar arthrotomy. The patella was subluxed laterally. Electrocautery was used to dissect soft tissue off the superomedial tibia to the midsagittal plane. The knee was flexed up. The anterior horn of the lateral meniscus and the ACL were sharply incised. A drill was used to enter the distal femur. The intramedullary distal femoral cutting guide was pinned on the distal femur. The oscillating saw was used to make the distal femoral cut. The external rotation guide was pinned on the distal femur and the distal femur was sized to a size 5. The size 5 multi-cutting jig was pinned on the distal femur. The oscillating saw was used to make the appropriate 4 chamfer cuts. Next the PCL was completely released. The extramedullary tibial cutting guide was pinned on the proximal tibia and the oscillating saw was used to make the proximal tibial cut perpendicular to the mechanical axis of the tibia. The bone was carefully removed. The knee was brought out into full extension. The spacer block was placed and had excellent fit with the knee in full extension. The medial and lateral ligaments were well balanced. The flexion and extension gaps were well balanced. The knee was flexed up. Lamina drupal php developer was placed both medially and laterally. Any remaining meniscus was removed with electrocautery. Curved osteotome was used to remove any posterior osteophytes. The tibial tray and drop kwame were placed and confirmed a satisfactory tibial cut. The size 5 right femoral trial was impacted onto the distal femur. This trial had excellent fit and stability. The box for the posterior stabilized implant was prepared using a box cut osteotome and a reamer. Next a tibial tray trial and 9 mm insert trial was placed. The knee was taken through a range of motion and had full extension to 130 degrees of flexion. Patellofemoral tracking was satisfactory. The patella was inverted and sized to a size 32. Three peg holes were drilled through the size 32 drill guide. The trial patella was placed and the knee was taken through a range of motion. There was satisfactory patellofemoral tracking. All trials were removed. The tibia was subluxed anteriorly and sized to a size 3. The proximal tibial was prepared with a size 3 keel punch. All bony cut surfaces were irrigated with sterile saline and dried. Final implants were cemented into place starting with the tibia, followed by the femur, and last the patella. A 9 mm insert trial was placed and the knee was brought into full extension. Tourniquet was turned down and the knee was copiously irrigated with sterile saline. Electrocautery was used to obtain meticulous hemostasis. Once the cement had fully cured, the insert trial was removed. Any excess cement was removed from around the hardware and capsule. Final insert chosen was a 9 mm posterior stabilized Genie II articular insert size 3-4. Stability of the insert was checked and noted to be stable. The extensor mechanism was closed using number 1 vicryls. The rest of the incision was closed in a layered fashion using 0 and 2-0 vicryls. The skin was closed using 3-0 nylon suture. Sterile xeroform, 4x4s and webril were used to cover the incision. Nehemias wrap and cold pack were used to cover the dressings. The patients anesthesia was reversed without difficulty. She was taken to the PACU in stable condition. Intended weight-bearing will be as tolerated.
[2019-08-22] MEDS ORDERED: cloNIDine 0.3 MG PATCH* 0.3 MG/24 HR 7 DAY PATCH TRANSDERM SCH (19:30)
[2019-08-22] MEDS: traMADol TAB* 50 MG PO SCH (20:06)
[2019-08-22] MEDS: oxyCODONE TAB* 5 MG TAB PO PRN (21:14)
[2019-08-22] MEDS: HYDROmorphone INJ* 0.5 MG/0.5 ML SYRINGE IV SLOW PU PRN (21:14)
[2019-08-22] MEDS: Docusate CAP* 100 MG PO SCH (22:07)
[2019-08-22] MEDS: Atorvastatin* 10 MG TAB PO SCH (22:07)
[2019-08-22] MEDS: DULoxetine DR CAP* 30 MG CAP.DR PO SCH (22:07)
[2019-08-22] MEDS: ARIPiprazole TAB* 2 MG PO SCH (22:07)
[2019-08-22] MEDS: Atenolol TAB* 25 MG PO SCH (22:07)
[2019-08-22] MEDS: Magnesium Hydroxide LIQ* 30 ML UDC PO SCH (22:09)
[2019-08-22] MEDS: Acetaminophen TAB* 325 MG PO SCH (22:11)
[2019-08-22] MEDS: ceFAZolin 1 GM ADVAN(*) 1 GM in NS 0.9% 50 ML* 50 ML IVPB SCH (23:19)
[2019-08-22] MEDS: Cyclobenzaprine TAB* 10 MG PO PRN (23:25)
--- NOTE | 2019-08-23 00:07 | CONS ---
HOSPITAL MEDICINE CONSULTATION REPORT: DATE OF CONSULT: 08/22/19 PROVIDER: Darcie Mtz NP ATTENDING PHYSICIAN: Dr. Rita Kline. CONSULTING PHYSICIAN: Dr. Bev Marrero (dictated by Darcie Mtz NP). REASON FOR CONSULT: Co-management of chronic medical conditions. HISTORY OF PRESENT ILLNESS: Ms. Harrell is a 79-year-old female with a past medical history significant for hypertension; hyperlipidemia; regional complex pain syndrome; sleep apnea, wears CPAP at night; depression; anxiety; hypothyroid, who [place] [facility] [place] elective right total knee arthroplasty with Dr. Kline. Please see dictated H and P from ANIL Rodriguez for complete details. In brief, the patient had ongoing pain and failed conservative measures, therefore opted for a right total knee arthroplasty with Dr. Kline. In the immediate postoperative period, the patient has no complaints. She denies any recent illnesses. Denies any fever, chills, chest pain or shortness of breath. Denies any nausea, vomiting, or diarrhea. Denies any urinary frequency, urgency or pain with urination. Denies any dysphagia, arthralgias, myalgias, rashes, lesions, open sores, psychosis, or anxiety. Due to the patient's chronic medical conditions, Hospital Medicine was asked to see and help co-manage her care during this hospitalization. PAST MEDICAL HISTORY: Significant for: 1. Hypertension. 2. Hyperlipidemia. 3. Regional complex pain syndrome. 4. Sleep apnea, wears CPAP at night. 5. Depression. 6. Anxiety. 7. Hypothyroid. PAST SURGICAL HISTORY: 1. Tubal ligation. 2. Right elbow surgery. 3. Spinal cord stimulator placed and removed several times. 4. Left breast surgery. 5. Appendectomy. HOME MEDICATIONS: Include: 1. Atorvastatin 10 mg p.o. daily. 2. Tizanidine 4 mg twice daily. 3. Compazine 1 to 2 tablets every 4 hours as needed for nausea, vomiting. 4. Duloxetine 30 mg p.o. b.i.d. 5. Atenolol 25 mg p.o. at bedtime. 6. Oxycodone 20 mg every 6 hours as needed. 7. Atorvastatin 10 mg at bedtime. 8. Abilify 2 mg p.o. at bedtime. 9. Provigil 200 mg p.o. daily. 10. Levothyroxine 75 mcg p.o. daily. 11. Catapres 0.3 mg every 7 days for blood pressure. ALLERGIES: NAPROXEN, LEVOFLOXACIN, MORPHINE, PNEUMOCOCCAL VACCINE, AMITRIPTYLINE, SULFAMETHIZOLE, HONEY BEES. FAMILY HISTORY: Father with cerebral hemorrhage at the age of 56, . Mother from an [place] at age 76. No reported history of diabetes. Prostate cancer with brother and sister with leukemia. SOCIAL HISTORY: The patient denies any smoking, alcohol or illicit drug use. Surrogate decision maker in the event she is unable to make her own decisions is her son or daughter. She is a DNR. REVIEW OF SYSTEMS: A 14-point review of systems was completed. All pertinent positives were mentioned in the HPI. Otherwise were negative. PHYSICAL EXAM: General: At this time, Ms. Harrell is alert and oriented, resting in her bed in PACU. She is in no acute distress. Vital Signs: Blood pressure 166/73, heart rate 85, respirations 18, O2 saturation 98%, temperature was 97.8. HEENT: Head is atraumatic, normocephalic. Eyes: EOMs are intact. Sclerae anicteric and not pale. Oral mucosa is moist. Neck is supple. Lungs are clear to auscultation bilaterally. No wheezes, rales, or rhonchi. Cardiac : S1, S2. Regular rate and rhythm. No murmurs, rubs, or gallops. Abdomen is soft and nontender. Bowel sounds are present x4. Extremities: She is able to move all 4 extremities. Pedal pulses are +2 bilaterally. Cap refill is about 4 seconds in her feet bilaterally. She does have a dressing that is dry and intact to the right knee. Neurologic: She is awake, alert, oriented x3. Speech is clear. Thought process is intact. Skin: She does have a dressing dry and intact to the right knee. DIAGNOSTIC STUDIES/LAB DATA: WBCs from 08/11/19 were 5.9, RBCs 3.90, hemoglobin 12.7, hematocrit was 37, platelet count was 208. INR was 0.99. Sodium 142, potassium 4.2, chloride 106, carbon dioxide 31, anion gap was 5, BUN was 22, creatinine was 1.73, glucose was 91, calcium 9.5. Total bilirubin 0.50, ASTs were 17, ALTs were 14, alkaline phosphatase was 117. Urine was within normal limits with exception of leukocyte esterase of +1, wbc's were +1, squamous epithelial cells were present, bacteria was absent. Urine culture did show E. coli on 08/11/19. IMPRESSION AND PLAN: Ms. Harrell is a 79-year-old female with a past medical history significant for hypertension; hyperlipidemia; regional complex pain syndrome; sleep apnea, wears CPAP at night; depression; anxiety and hypothyroid , who [place] [facility] [place] an elective right total knee arthroplasty with Dr. Kline. Our recommendations are as follows: 1. Status post right total knee arthroplasty. Management per Orthopedics. PT/ OT per Orthopedics. Bowel regimen per Orthopedics. Pain management per Orthopedics. 2. Hypertension. The patient will continue on Catapres 0.3 mg and atenolol 25. 3. Depression and anxiety. She should continue on Abilify and Cymbalta as previously prescribed. 4. Regional complex pain syndrome. She does take tizanidine. She could have that as previously prescribed. 5. Hyperlipidemia. She should continue on atorvastatin 10 mg p.o. daily. 6. Hypothyroid. She should continue on levothyroxine 75 mcg p.o. daily. 7. FEN: She can have a heart healthy, caffeine okay diet. 8. Code status: She is a full code. 9. DVT prophylaxis: As per Orthopedics. TIME SPENT: Time spent on this consultation was 45 minutes, greater than half that time was spent at the bedside reviewing events leading thus far to her hospitalization, performing physical exam, and reviewing my plan of care. I have discussed this with my attending, Dr. Bev Marrero; she is in agreement with my plan. DARCIE MTZ, F[employer]ER [employer]DER HELPER [id number]/[facility] #: [id number] KATHY
[2019-08-23] MEDS: oxyCODONE TAB* 5 MG TAB PO PRN ×3 (01:34→13:15)
[2019-08-23] MEDS ORDERED: amLODIPine TAB* 5 MG PO ONE (02:36)
[2019-08-23] MEDS: oxyCODONE/Acetamin 5/325 MG* TAB PO PRN ×3 (04:06→17:00)
[2019-08-23] MEDS: Acetaminophen TAB* 325 MG PO SCH ×3 (05:22→21:57)
[2019-08-23] MEDS: HYDROmorphone INJ* 0.5 MG/0.5 ML SYRINGE IV SLOW PU PRN (05:27)
[2019-08-23] MEDS: Cyclobenzaprine TAB* 10 MG PO PRN ×3 (05:27→21:53)
[2019-08-23] MEDS: Levothyroxine TAB* 75 MCG TAB PO SCH (05:27)
[2019-08-23] MEDS: Lactated Ringers 1000 ML Bag* 1,000 ML IV SCH (05:34)
[2019-08-23 07:17] LABS: Hematocrit 35 % (35-47); Mean Platelet Volume 7.3 fL (7.4-10.4); Platelet Count 217 10^3/uL (150-450)
[2019-08-23] MEDS: traMADol TAB* 50 MG PO SCH ×2 (07:26→19:45)
[2019-08-23 07:35] LABS: BUN/Creatinine Ratio 14.9 (8-20); Calcium 9.4 mg/dL (8.6-10.3); EGFR African American 52.2 (>60); EGFR Non-African American 43.1 (>60); Potassium 4.6 mmol/L (3.5-5.0)
[2019-08-23] MEDS: Magnesium Hydroxide LIQ* 30 ML UDC PO SCH ×2 (08:28→21:56)
[2019-08-23] MEDS: Docusate CAP* 100 MG PO SCH ×2 (08:28→21:53)
[2019-08-23] MEDS: Vitamin THERAPEUTIC TAB PO SCH (08:28)
[2019-08-23] MEDS: Apixaban* 2.5 MG TAB PO SCH ×2 (08:28→21:53)
[2019-08-23] MEDS: Modafinil TAB* 100 MG PO SCH (08:28)
[2019-08-23] MEDS: DULoxetine DR CAP* 30 MG CAP.DR PO SCH ×2 (08:29→21:53)
[2019-08-23] MEDS: ceFAZolin 1 GM ADVAN(*) 1 GM in NS 0.9% 50 ML* 50 ML IVPB SCH (11:12)
[2019-08-23] MEDS ORDERED: oxyCODONE/Acetamin 5/325 MG* TAB PO PRN (13:00)
--- NOTE | 2019-08-23 13:05 | PN ---
Progress Note - Progress Note Date of Service: 08/23/19 SOAP: Subjective: []Patient seen and examined at bedside. Denies CP, SOB, dizziness nausea. Patient reports 8/10 pain at rest. Her family discussed with me that they feel her pain reporting is not accurate, as she consistently reports a great deal of pain even when appearing comfortable. Family also reports she takes 20 mg oxycodone BID rather than the prescribed and reported QID. Objective: []gen: NAD RLE: right knee dressing CDI, thigh soft, DF/PF intact, DP 2+, PT2+, sensation intact to light touch distally. Calves supple and nontender Assessment: []right total knee replacement CRPS Plan: []WBAT PT/OT Eliquis 2.5 mg po BID x 30 days post op No change to pain meds at this time. Pain is tolerable alternating percocet and oxycodone. PMRU referral placed. Vital Signs Temp 98.6 F 08/23/19 10:52 Pulse 83 08/23/19 10:52 Resp 18 08/23/19 12:38 BP 117/62 08/23/19 10:52 Pulse Ox 100 08/23/19 10:52 Intake & Output 08/22/19 08/23/19 08/23/19 18:59 06:59 18:59 Intake Total 1200 1079 1367 Output Total 676 257 1326 Balance 900 629 267 Weight 159 lb Intake: IV Fluids 1200 959 327 ABX - CEFAZOLIN 53 60 LR 1200 906 267 Oral 120 1040 Output: Urine 450 Ramirez 100 450 650 Estimated Blood Loss 200 Laboratory Last Values Hgb 12.0 g/dL (12.0-16.0) 08/23/19 07:00 Hct 35 % (35-47) 08/23/19 07:00 Plt Count 217 10^3/uL (150-450) 08/23/19 07:00 MPV 7.3 fL (7.4-10.4) L 08/23/19 07:00 Sodium 138 mmol/L (135-145) 08/23/19 07:00 Potassium 4.6 mmol/L (3.5-5.0) 08/23/19 07:00 Chloride 102 mmol/L (101-111) 08/23/19 07:00 Carbon Dioxide 28 mmol/L (22-32) 08/23/19 07:00 Anion Gap 8 mmol/L (2-11) 08/23/19 07:00 BUN 18 mg/dL (6-24) 08/23/19 07:00 Creatinine 1.21 mg/dL (0.51-0.95) H 08/23/19 07:00 Est GFR ( Amer) 52.2 (>60) 08/23/19 07:00 Est GFR (Non-Af Amer) 43.1 (>60) 08/23/19 07:00 BUN/Creatinine Ratio 14.9 (8-20) 08/23/19 07:00 Glucose 145 mg/dL (70-100) H 08/23/19 07:00 Calcium 9.4 mg/dL (8.6-10.3) 08/23/19 07:00
[2019-08-23] MEDS: ARIPiprazole TAB* 2 MG PO SCH (21:52)
[2019-08-23] MEDS: Atenolol TAB* 25 MG PO SCH (21:52)
[2019-08-23] MEDS: Atorvastatin* 10 MG TAB PO SCH (21:53)
[2019-08-24] MEDS: ceFAZolin 1 GM ADVAN(*) 1 GM in NS 0.9% 50 ML* 50 ML IVPB SCH (00:02)
[2019-08-24] MEDS: oxyCODONE/Acetamin 5/325 MG* TAB PO PRN ×3 (03:39→15:08)
[2019-08-24] MEDS: Levothyroxine TAB* 75 MCG TAB PO SCH (05:58)
[2019-08-24] MEDS: oxyCODONE TAB* 5 MG TAB PO PRN ×2 (05:58→11:20)
[2019-08-24] MEDS: Acetaminophen TAB* 325 MG PO SCH ×3 (06:00→21:54)
[2019-08-24 08:27] LABS: Hematocrit 29 % (35-47); Mean Platelet Volume 7.1 fL (7.4-10.4); Platelet Count 190 10^3/uL (150-450)
[2019-08-24] MEDS: Magnesium Hydroxide LIQ* 30 ML UDC PO SCH (08:28)
[2019-08-24] MEDS: Apixaban* 2.5 MG TAB PO SCH ×2 (08:29→21:53)
[2019-08-24] MEDS: DULoxetine DR CAP* 30 MG CAP.DR PO SCH ×2 (08:29→21:53)
[2019-08-24] MEDS: Modafinil TAB* 100 MG PO SCH (08:29)
[2019-08-24] MEDS: Vitamin THERAPEUTIC TAB PO SCH (08:29)
[2019-08-24] MEDS: Docusate CAP* 100 MG PO SCH ×2 (08:29→21:54)
[2019-08-24] MEDS: traMADol TAB* 50 MG PO SCH ×2 (08:36→21:53)
--- NOTE | 2019-08-24 09:53 | PN ---
Progress Note - Progress Note Date of Service: 08/24/19 SOAP: Subjective: []Patient was seen and examined OOB in joint chair today. She feels better than yesterday, pain is tolerable. She has 6/10 pain of her right arm, right hip and right knee. Both the right arm and hip pain are chronic and unchanged. Denies CP , SOB, dizziness or nausea. Objective: []gen: NAD RLE: right knee dressing changed and incision is CDI, thigh is soft, DF/PF intact, DP 2+, PT2+, sensation intact to light touch distally. Calves supple and nontender Assessment: []right total knee replacement CRPS Plan: []WBAT PT/OT Eliquis 2.5 mg po BID x 30 days post op PMRU unable to offer a bed. She accepted a bed offer at [facility], insurance requires a 3 day hospital stay. DC 08/24 to [facility] When discharged monitor MAR for pain meds. Per family, does not take home oxycodone 20 mg as often as prescribed and reports elevated pain levels at all times. Vital Signs Temp 97.6 F 08/24/19 08:06 Pulse 87 08/24/19 08:06 Resp 14 08/24/19 08:36 BP 153/69 08/24/19 08:06 Pulse Ox 98 08/24/19 08:06 Intake & Output 08/23/19 08/24/19 08/24/19 18:59 06:59 18:59 Intake Total 1847 250 Output Total 1500 1000 400 Balance 347 -750 -400 Intake: IV Fluids 327 ABX - CEFAZOLIN 60 LR 267 Oral 1520 250 Output: Urine 850 1000 400 Ramirez 650 Other: Estimated Void Small # Voids 1 Laboratory Last Values Hgb 10.0 g/dL (12.0-16.0) L 08/24/19 08:18 Hct 29 % (35-47) L 08/24/19 08:18 Plt Count 190 10^3/uL (150-450) 08/24/19 08:18 MPV 7.1 fL (7.4-10.4) L 08/24/19 08:18 Sodium 138 mmol/L (135-145) 08/23/19 07:00 Potassium 4.6 mmol/L (3.5-5.0) 08/23/19 07:00 Chloride 102 mmol/L (101-111) 08/23/19 07:00 Carbon Dioxide 28 mmol/L (22-32) 08/23/19 07:00 Anion Gap 8 mmol/L (2-11) 08/23/19 07:00 BUN 18 mg/dL (6-24) 08/23/19 07:00 Creatinine 1.21 mg/dL (0.51-0.95) H 08/23/19 07:00 Est GFR ( Amer) 52.2 (>60) 08/23/19 07:00 Est GFR (Non-Af Amer) 43.1 (>60) 08/23/19 07:00 BUN/Creatinine Ratio 14.9 (8-20) 08/23/19 07:00 Glucose 145 mg/dL (70-100) H 08/23/19 07:00 Calcium 9.4 mg/dL (8.6-10.3) 08/23/19 07:00
[2019-08-24] MEDS: ARIPiprazole TAB* 2 MG PO SCH (21:52)
[2019-08-24] MEDS: Atenolol TAB* 25 MG PO SCH (21:53)
[2019-08-24] MEDS: Atorvastatin* 10 MG TAB PO SCH (21:54)
[2019-08-25] MEDS: Magnesium Hydroxide LIQ* 30 ML UDC PO SCH ×2 (00:26→08:00)
[2019-08-25 06:37] LABS: Hematocrit 26 % (35-47); Hemoglobin 9.2 g/dL (12.0-16.0); Mean Platelet Volume 7.2 fL (7.4-10.4); Platelet Count 162 10^3/uL (150-450)
[2019-08-25] MEDS: Acetaminophen TAB* 325 MG PO SCH ×2 (06:39→13:21)
[2019-08-25] MEDS: Levothyroxine TAB* 75 MCG TAB PO SCH (06:40)
[2019-08-25] MEDS: DULoxetine DR CAP* 30 MG CAP.DR PO SCH (08:00)
[2019-08-25] MEDS: Vitamin THERAPEUTIC TAB PO SCH (08:00)
[2019-08-25] MEDS: traMADol TAB* 50 MG PO SCH (08:00)
[2019-08-25] MEDS: Apixaban* 2.5 MG TAB PO SCH (08:00)
[2019-08-25] MEDS: Docusate CAP* 100 MG PO SCH (08:00)
[2019-08-25] MEDS: Modafinil TAB* 100 MG PO SCH (08:00)
--- NOTE | 2019-08-25 09:36 | DS ---
Orthopedic Discharge Summary - Discharge Summary Date of Admission:08/22/19 Date of Discharge: 08/25/2019 Date of Surgery: 08/22/2019 Attending Orthopedic Provider: Dr. Kline Pre-operative Diagnosis: Right knee osteoarthritis Operative Procedure: Right total knee replacement Disposition of Patient: [facility] Condition of Patient: Good Pain medication RX at discharge: Percocet 5/325 DVT prophylaxis RX at discharge: Eliquis 2.5 mg History: JARED MARTINEZ is a 79 year old F with years of increasingly severe right knee pain. Patient has failed conservative management and has elected to undergo a right total knee replacement Hospital Course: JARED was admitted to [facility] on 08/22/19. Patient underwent a right total knee replacement without complication followed by a brief recovery in PACU and transfer to the Short Stay Surgical Unit in stable condition. Our hospitalist service, physical therapy and occupational therapy also participated in this patients care. Post-op day 1: patient was alert and in no acute distress. Dressing was clean, dry and intact. Operative extremity dorsiflexion and plantarflexion intact, sensation intact to light touch distally, DP2+. Post-op day two: dressing was changed, incision was clean , dry and intact. Post-op day three: dressing was changed, incision was clean, dry and intact.Patient was deemed to be medically and orthopedically stable for discharge. Physical therapy goals were met. Home Medications Medication Instructions Recorded Confirmed Type DULoxetine DR SHUKLA* Cymbalta CAP* 30 mg PO BID 03/17/12 08/22/19 History Prochlorperazine 5 mg TAB 1 - 2 tab PO Q4HR PRN 03/17/12 08/22/19 History [Compazine 5 mg TAB] Tizanidine HCl 1 cap PO BID 03/17/12 08/22/19 History cloNIDine [Catapres-Tts 2] 0.3 mg TD Q7D 03/17/12 08/22/19 History Atorvastatin* [Lipitor 10 MG*] 10 mg PO BEDTIME 04/11/15 08/22/19 History ARIPiprazole TAB* [Abilify 2 MG 2 mg PO BEDTIME 08/11/19 08/22/19 History TAB*] Atenolol TAB* [Tenormin TAB* 25 MG] 25 mg PO BEDTIME 08/11/19 08/22/19 History Levothyroxine TAB* [Synthroid 75 75 mcg PO DAILY 08/11/19 08/22/19 History MCG TAB*] Modafinil TAB* [Provigil TAB*] 200 mg PO QAM 08/11/19 08/22/19 History Oxycodone TAB(NF) [Oxycodone HCl 20 mg PO Q6H PRN 08/11/19 08/22/19 History 10 MG] Apixaban* [Eliquis*] 2.5 mg PO BID tab 08/25/19 Rx oxyCODONE/Acetamin 5/325 MG* 1 tab PO Q4H PRN tab 08/25/19 Rx [Percocet 5/325 TAB*] oxyCODONE/Acetamin 5/325 MG* 2 tab PO Q4H PRN tab 08/25/19 Rx [Percocet 5/325 TAB*] Discharge Instructions following Orthopedic Surgery: Activity: * Weight Bearing as tolerated * Continue physical therapy and occupational therapy exercises as shown * If you have elected to have home physical therapy, continue therapy exercises at home. If you have elected outpatient physical therapy, please start therapy as an outpatient right away. Wound care: * OK to shower on post-op day 3, no bathing, swimming, or submerging wound. * Use gentle soap, pat dry. Cover with gauze, TIMMY wrap or tape. * If you elected to have a visiting home nurse, they will perform wound checks. Call Orthopedic office for: * Increased drainage * Redness * Increased pain * Fever Go to ER with shortness of breath or chest pain. Diet: * Regular diet * Increase fluids and fiber to prevent constipation. * Continue to use stool softeners, call office if no bowel motion within 48 hours. Medications See Home Medication List in your packet for medications that you should take after discharge. DVT Prophylaxis: Eliquis Dosin.5 mg, 1 tab every 12 hours x 30 days Pain Control: Percocet 5/325 mg 1 tab for moderate pain and 2 tabs for severe pain by mouth every 4 hours as needed. Maximum of 10 tabs per day. Hold for sedation , wean off as soon as pain allows Please note that Percocet contains Tylenol (acetaminophen). Maximum daily dose of Tylenol is 4000 mg from all sources. Antibiotics are required prior to any dental work. FOLLOW UP: Follow up with Dr. Kline Within 10 - 14 days, call for appointment Please call our office with any questions or concerns ([phone])
[2019-08-25 11:48] VITALS: BP 109/56
[2019-08-25] MEDS: oxyCODONE TAB* 5 MG TAB PO PRN (13:21)
== END 2019-08-25 13:30 | disposition swing bed (61) | DRG 470 ==
LOC: AA 11:35 → SSU 17:14
PROVIDERS: ADMIT Orthopaedic Surgery Adult Reconstructive Orthopaedic Surgery; ATTEND Orthopaedic Surgery Adult Reconstructive Orthopaedic Surgery
PROC: 0SRC0J9 Replacement of Right Knee Joint with Synthetic Substitute, Cemented, Open Approach (ICD-10-PCS; principal; 2019-08-22 14:30)
DX: M17.11 Unilateral primary osteoarthritis, right knee (principal); G90.511 Complex regional pain syndrome I of right upper limb; I10 Essential (primary) hypertension; E78.5 Hyperlipidemia, unspecified; G47.30 Sleep apnea, unspecified; F32.9 Major depressive disorder, single episode, unspecified; F41.9 Anxiety disorder, unspecified; Z66 Do not resuscitate; M25.761 Osteophyte, right knee; E78.00 Pure hypercholesterolemia, unspecified; E03.9 Hypothyroidism, unspecified; Z79.890 Hormone replacement therapy; Z79.899 Other long term (current) drug therapy; Z88.8 Allergy status to other drugs, medicaments and biological substances; Z88.1 Allergy status to other antibiotic agents; Z88.5 Allergy status to narcotic agent; Z88.2 Allergy status to sulfonamides; Z88.7 Allergy status to serum and vaccine; Z91.030 Bee allergy status
CPT/HCPCS: 36415; 80048; 85014; 85018; 85049; 88305; 88311; A9270-GY; C1776; J0690; J1170; J2250; J2405; J2704; J2795; J3010; J3490